=== PATIENT | female | born 1970 | race Two or more races ===

== ENCOUNTER 2019-12-30 08:45 | Inpatient (IN) | payer OTHER ==
[~2019-12-30] VITALS: Ht 152.4 cm; Wt 54.4 kg
== END 2020-01-08 09:38 | disposition home or self-care (01) | DRG 743 ==
LOC: OB/GYN 01-06 06:05 → O/R 01-06 06:05 → SURH 01-06 07:00 → OB/GYN 01-06 10:34
PROVIDERS: ADMIT Obstetrics & Gynecology; ATTEND Obstetrics & Gynecology
PROC: 0UT20ZZ Resection of Bilateral Ovaries, Open Approach (ICD-10-PCS; 2020-01-06)
PROC: 0UT70ZZ Resection of Bilateral Fallopian Tubes, Open Approach (ICD-10-PCS; 2020-01-06)
PROC: 0UT90ZZ Resection of Uterus, Open Approach (ICD-10-PCS; principal; 2020-01-06 07:00)
DX: D25.1 Intramural leiomyoma of uterus (principal); D25.2 Subserosal leiomyoma of uterus; D25.0 Submucous leiomyoma of uterus; D26.1 Other benign neoplasm of corpus uteri; N72 Inflammatory disease of cervix uteri; N84.0 Polyp of corpus uteri; N83.8 Other noninflammatory disorders of ovary, fallopian tube and broad ligament; N83.11 Corpus luteum cyst of right ovary; N83.02 Follicular cyst of left ovary